=== PATIENT | female | born 1955 | race Caucasian/White ===

== ENCOUNTER → 2016-06-08 | Outpatient (CLI) | payer OTHER ==
--- NOTE | ~2016-06-08 | US49 ---
[facility] of [facility] RADIOLOGY TEXT RESULTS PATIENT: MIKHAIL CONROY LOCATION: [facility] : 51 UNIT #: [id number] AGE: [address]: JUVENAL LARIOS MD SEX: F ORDER DR: [id number] [facility] [address] [place], [place] [address] [id number] O MR#: [id number] Acc #: [id number] NAME: MIKHAIL CONROY : 1955 SEX: F STUDY DATE/TIME: 06/08/2016 15:56 UNIT: [facility] ROOM: STUDY DESCRIPTION: US Extremity Non Vasc Complete Attending Physician: Juvenal Larios M.D. Referring Physician: Juvenal Larios M.D. Primary Care Physician: Juvenal Larios M.D. MEDICAL IMAGING REPORT This report is preliminary unless electronic signature is present EXAM Ultrasound extremity nonvascular right side, 06/08/2016 HISTORY Palpable area of swelling below knee anteriorly for 7 months, worsening in the last 2 months. FINDINGS Ultrasound of the site of palpated abnormality anterior and inferior to the right knee demonstrates normal muscular and subcutaneous tissue. No cystic or solid mass lesions were identified. IMPRESSION Ultrasound of the area of palpated abnormality anteriorly and below the right knee shows no abnormal finding. Dictated by... Ed Cervantes M.D. THIS IS AN ELECTRONICALLY VERIFIED REPORT Ed Cervantes M.D. at 06/10/2016 8:30 AM DEO/lee TD: 06/08/2016 19:18 JOB #: [id number] MEDICAL IMAGING REPORT Page 1 of 1 COPY
== END | disposition home or self-care (01) ==
LOC: CGUS 14:20
DX: M79.89 Other specified soft tissue disorders (principal)
CPT/HCPCS: 76881